=== PATIENT | female | born 1990 | race African-American/Black ===

== ENCOUNTER 2019-04-13 00:03 | Emergency (ER) | payer BC, MEDICAID ==
[~2019-04-13] VITALS: Ht 157.5 cm; Wt 61.2 kg
[2019-04-13] MEDS ORDERED: HYDROMORPHONE 1 MG/1 ML DISP.SYRIN ONE (00:28)
[2019-04-13] MEDS ORDERED: ONDANSETRON 4 MG/2 ML VIAL ONE (00:29)
[2019-04-13] MEDS ORDERED: HYDROMORPHONE 1 MG/1 ML DISP.SYRIN IV ONE (00:30)
[2019-04-13] MEDS ORDERED: IV NORMAL SALINE 1000 ML BAG IV ONE (00:30)
[2019-04-13] MEDS ORDERED: ONDANSETRON 4 MG/2 ML VIAL IV ONE (00:30)
--- NOTE | 2019-04-13 01:30 | NUR ---
IV removed. Catheter intact and site benign. Pressure and 4x4 gauze applied to site. No bleeding noted.
[2019-04-13 01:31] VITALS: BP 118/74
--- NOTE | 2019-04-13 01:31 | NUR ---
Patient discharged to home in stable conditon. Written and verbal after care instructions given. Patient verbalizes understanding of instructions. Pt walked out of ER in stable gait with friend who will drive pt home. Pt states she feels better. No acute distress noted. Vital signs stable. Respirations even + unlabored.
== END 2019-04-13 01:32 | disposition home or self-care (01) ==
LOC: ER 00:15
DX: R51 Headache (principal); R42 Dizziness and giddiness; R11.10 Vomiting, unspecified; F17.200 Nicotine dependence, unspecified, uncomplicated
CPT/HCPCS: 96361; 96374; 96375; 99283; J1170; J2405; A4663; J7030